=== PATIENT | male | born 2000 | race African-American/Black ===

== ENCOUNTER 2021-06-11 16:18 | Day surgery (SDC) | payer MEDICAID ==
--- NOTE | 2021-06-11 14:43 | PCM.PREANE ---
Preanesthetic Assessment - Anesthesia/Transfusion/Family Hx Anesthesia History: Prior Anesthesia Without Reaction - Review of Systems General: No Symptoms Pulmonary: No Symptoms Cardiovascular: No Symptoms Gastrointestinal: No Symptoms Neurological: No Symptoms Other: Reports: None - Physical Assessment NPO Status Date: 06/11/21 NPO Status Time: 00:00 Vital Signs: Last Vital Signs Temp 97.2 F 06/11/21 12:09 Pulse 63 06/11/21 12:09 Resp 15 06/11/21 12:09 BP 125/85 06/11/21 12:09 Pulse Ox 98 06/11/21 12:09 Height: 5 ft 10 in Weight: 148 lb ASA Class: 2 Mental Status: Alert & Oriented x3 Airway Class: Mallampati = 1 Dentition: Reports: Normal Dentition Thyro-Mental Finger Breadths: 3 Mouth Opening Finger Breadths: 3 ROM/Head Extension: Full Lungs: Clear to Auscultation, Normal Respiratory Effort Cardiovascular: Regular Rate, Regular Rhythm - Allergies Allergies/Adverse Reactions: Allergies Allergy/AdvReac Type Severity Reaction Status Date / Time No Known Allergies Allergy Verified 06/06/21 10:36 - Acknowledgements Anesthesia Type Planned: General Anesthesia Pt an Appropriate Candidate for the Planned Anesthesia: Yes Alternatives and Risks of Anesthesia Discussed w Pt/Guardian: Yes Pt/Guardian Understands and Agrees with Anesthesia Plan: Yes PreAnesthesia Questionnaire HEENT History: Reports: None Cardiovascular History: Reports: None Respiratory History: Reports: None Gastrointestinal History: Reports: None Genitourinary History: Reports: None Musculoskeletal History: Reports: None Neurological History: Reports: None Psychiatric History: Reports: None Endocrine/Metabolic History: Reports: None Hematologic History: Reports: None Immunologic History: Reports: None Oncologic (Cancer) History: Reports: None Dermatologic History: Reports: None - Past Surgical History Head Surgeries/Procedures: Reports: None HEENT Surgical History: Reports: None Cardiovascular Surgical History: Reports: None Respiratory Surgical History: Reports: None GI Surgical History: Reports: None Male Surgical History: Reports: None Endocrine Surgical History: Reports: None Neurological Surgical History: Reports: None Musculoskeletal Surgical History: Reports: Other (See Below) Other Musculoskeletal Surgeries/Procedures:: previous excision of right axcillary abscess Dermatological Surgical History: Reports: None - SUBSTANCE USE Tobacco Use Status *Q: Current Some Day Tobacco User Tobacco Use Within Last Twelve Months: Vaping Recreational Drug Use History: Yes Recreational Drug Type: Reports: Marijuana/Hashish - HOME MEDS Home Medications: Home Meds Hydrocodone/Acetaminophen [HYDROcodone-Acetaminophen 10-325 MG] 1 tab PO Q4H PRN 06/06/21 [History] - CURRENT (IN HOUSE) MEDS Current Meds: Current Medications Fentanyl (Fentanyl 100 Mcg/2 Ml Sdv) 50 mcg IVPUSH Q5M PRN PRN Reason: Pain (mild 1-3) Hydromorphone HCl (Hydromorphone 1 Mg/Ml Syringe) 1 mg IVPUSH Q10M PRN PRN Reason: Pain (moderate 4-6) Lactated Ringer's (Ringers, Lactated) 1,000 mls @ 125 mls/hr IV ASDIRECTED ALIDA Last Admin: 06/11/21 13:09 Dose: 125 mls/hr Documented by: Metoclopramide HCl (Metoclopramide 10 Mg/2 Ml Sdv) 10 mg IVPUSH ONETIME PRN PRN Reason: Nausea/Vomiting Naloxone HCl (Naloxone 0.4 Mg/Ml Sdv) 0.1 mg IVPUSH ASDIRECTED PRN PRN Reason: Respiratory Depression Ondansetron HCl (Ondansetron 4 Mg/2 Ml Sdv) 4 mg IVPUSH ONETIME PRN PRN Reason: Nausea/Vomiting Discontinued Medications Bupivacaine HCl (Bupivacaine 0.5% 10 Ml Sdv) Confirm Administered Dose 20 ml .ROUTE .STK-MED ONE Stop: 06/11/21 07:31
--- NOTE | 2021-06-11 15:56 | PCM.POSTAN ---
POST ANESTHESIA ASSESSMENT - MENTAL STATUS Mental Status: Somnolent - VITAL SIGNS Vital Signs: Last Vital Signs Temp 97.2 F 06/11/21 12:09 Pulse 66 06/11/21 15:50 Resp 18 06/11/21 15:50 BP 89/41 L 06/11/21 15:50 Pulse Ox 96 06/11/21 15:50 - RESPIRATORY Respiratory Status: Respiratory Rate WNL, Airway Patent, O2 Saturation Stable - CARDIOVASCULAR CV Status: Pulse Rate WNL, Blood Pressure Stable - GASTROINTESTINAL GI Status: No Symptoms - POST OP HYDRATION Hydration Status: Adequate & Stable
--- NOTE | 2021-06-11 15:58 | PCM48HPAN ---
Post Anesthesia Note - EVALUATION WITHIN 48HRS OF ANESTHETIC Vital Signs in Normal Range: Yes Patient Participated in Evaluation: Yes Respiratory Function Stable: Yes Airway Patent: Yes Cardiovascular Function Stable: Yes Hydration Status Stable: Yes Pain Control Satisfactory: Yes Nausea and Vomiting Control Satisfactory: Yes Mental Status Recovered: Yes Vital Signs: Last Vital Signs Temp 97.2 F 06/11/21 12:09 Pulse 64 06/11/21 15:56 Resp 19 06/11/21 15:56 BP 94/41 L 06/11/21 15:56 Pulse Ox 96 06/11/21 15:56
[~2021-06-11 16:18] MED LIST: Bupivacaine 0.5% 10 ML SDV ONE; HYDROmorphone 1 MG/ML Syringe IVPUSH PRN; Lactated Ringers 1,000 ML IV SCH; Lidocaine 2% 5 ML SDV ONE; Metoclopramide 10 MG/2 ML SDV IVPUSH PRN; Midazolam 1 MG/ML 2 ML SDV ONE; Naloxone 0.4 MG/ML SDV IVPUSH PRN; Ondansetron 4 MG/2 ML SDV IVPUSH PRN; Ondansetron 4 MG/2 ML SDV ONE; Propofol 200 MG/20 ML SDV ONE; fentaNYL 100 MCG/2 ML SDV IVPUSH PRN; fentaNYL 100 MCG/2 ML SDV ONE
[2021-06-11 16:37] VITALS: PULSE 50
[2021-06-11] MEDS ORDERED: Acetaminophen/HYDROcodone 325-5 MG Tab PO PRN ×2 (16:48→17:00)
[2021-06-11] MEDS ORDERED: Lactated Ringers 1,000 ML IV SCH ×2 (17:00)
--- NOTE | 2021-06-11 17:02 | PCM.OPNOTE ---
- General Post-Op/Procedure Note Date of Surgery/Procedure: 06/11/21 Operative Procedure(s): I & D recurrent right axillary abscess Pre Op Diagnosis: Recurrent right axillary abscess Post-Op Diagnosis: Same Anesthesia Technique: General LMA (ASA II) Primary Surgeon: Jasvir Gant Fluid Replacement, Intraop: 600 EBL in mLs: 5 Condition: Stable Free Text/Narrative:: Intake & Output 06/11/21 06/11/21 06/11/21 03:59 11:59 19:59 Intake Total 850 Balance 850 CPT CODE [id number]
[2021-06-11 17:22] VITALS: BP 132/92
--- NOTE | 2021-06-11 21:43 | OR ---
SURGEON: Jasvir Gant M.D. DATE OF PROCEDURE: 06/11/2021 OPERATION PERFORMED: Incision and drainage, recurrent right axillary abscess. PRIMARY SURGEON: Jasvir Gant M.D. ANESTHESIA: General LMA. ASA CLASSIFICATION: II. PREOPERATIVE DIAGNOSIS: Recurrent right axillary abscess. POSTOPERATIVE DIAGNOSIS: Recurrent right axillary abscess. ESTIMATED BLOOD LOSS: 5 mL. INTRAOPERATIVE FLUID REPLACEMENT: 300 mL of crystalloid. DESCRIPTION OF PROCEDURE: The patient was taken to the operating room and placed on the operating table in the supine position. Time-out was called for appropriate identification of the patient and procedure. The surgical site had been marked prior to the patient entering the operating room. Following satisfactory attainment of general anesthesia with placement of an LMA, the right axilla was prepped with Betadine solution and sterile drapes were applied. The skin surrounding the abscess was infiltrated with 10 mL of 0.5% Marcaine solution. Skin incision was then made through the old incision into the subcutaneous tissue. No significant purulent drainage was noted today. The wound was widely opened and explored, and no pockets were identified. Hemostasis was obtained with the use of electrocautery. Half-inch Jose Francisco drain was placed into the defect and secured to the skin with a 2-0 nylon suture. The wound was then dressed with fluffs and Medipore tape. Following emergence from anesthesia and extubation, the patient was taken to recovery room in stable condition. SAPNA GANNON /[id number]
== END 2021-06-11 17:18 | disposition home or self-care (01) ==
LOC: MERGE 16:18 → MW.SDS 16:18
PROVIDERS: ATTEND Surgery
DX: L02.411 Cutaneous abscess of right axilla (principal); Z88.8 Allergy status to other drugs, medicaments and biological substances; F17.200 Nicotine dependence, unspecified, uncomplicated
CPT/HCPCS: 10060; A9270; J2250; J2405; J2704; J3010; J3490; J7120; 00400

== ENCOUNTER 2021-11-09 19:12 | Emergency (ER) | payer MEDICAID ==
[2021-11-09] MEDS ORDERED: Erythromycin Base 0.5% Ophth Oint 1 GM Tube EYELF ONE (19:25)
[2021-11-09] MEDS ORDERED: Tetracaine HCl/PF 0.5% 4 ML Bottle EYELF ONE (19:25)
[2021-11-09 19:46] VITALS: BP 121/58; PULSE 73
== END 2021-11-09 19:41 | disposition home or self-care (01) ==
LOC: MW.ED 19:12
DX: H10.32 Unspecified acute conjunctivitis, left eye (principal)
CPT/HCPCS: 99282; A9270; 99283

== ENCOUNTER 2022-11-01 07:58 | Emergency (ER) | payer SELFPAY ==
[2022-11-01 08:14] VITALS: BP 133/60; PULSE 60
[2022-11-01] MEDS ORDERED: Ibuprofen 600 MG Tab PO ONE (09:31)
== END 2022-11-01 10:50 | disposition home or self-care (01) ==
LOC: MW.ED 07:58
DX: S89.91XA Unspecified injury of right lower leg, initial encounter (principal); S89.92XA Unspecified injury of left lower leg, initial encounter; M79.645 Pain in left finger(s); W00.0XXA Fall on same level due to ice and snow, initial encounter
CPT/HCPCS: 73130; 73562; 99283; A9270; 99282

== ENCOUNTER 2023-02-17 11:35 | Emergency (ER) | payer BC, MEDICAID ==
[2023-02-17 11:44] VITALS: BP 151/77; PULSE 60
[2023-02-17] MEDS ORDERED: Lidocaine/Epineph/Tetracaine 3 ML Syringe TOP ONE (11:52)
[2023-02-17] MEDS ORDERED: Lidocaine 1% PF 2 ML SDV INJECT ONE (11:52)
[2023-02-17] MEDS ORDERED: Acetaminophen/HYDROcodone 325-5 MG Tab PO ONE (12:39)
[2023-02-17] MEDS ORDERED: Sulfamethoxazole/Trimethoprim 800-160 MG Tab PO ONE (12:39)
[2023-02-17] MEDS ORDERED: Ondansetron 4 MG Tab.DIS PO STA (13:04)
== END 2023-02-17 13:20 | disposition home or self-care (01) ==
LOC: MW.ED 11:35
DX: L02.412 Cutaneous abscess of left axilla (principal)
CPT/HCPCS: 10060; 99283; A9270; 99282; J3490

== ENCOUNTER 2024-03-07 21:39 | Emergency (ER) | payer SELFPAY ==
[2024-03-07] MEDS: Diphtheria,Pertussis(Acell),Tetanus Vaccine 0.5 ML Syringe IM ONE (22:03)
[2024-03-07] MEDS: Ibuprofen 600 MG Tab PO ONE (22:03)
[2024-03-07 22:57] VITALS: BP 124/95; PULSE 94
== END 2024-03-07 22:57 | disposition home or self-care (01) ==
LOC: MW.ED 21:39
DX: S02.652A Fracture of angle of left mandible, initial encounter for closed fracture (principal); Z23 Encounter for immunization; Y04.8XXA Assault by other bodily force, initial encounter
CPT/HCPCS: 70486; 90471; 90715; 99284; A9270; 99283